=== PATIENT | female | born 1980 | race Hispanic/Latino ===

== ENCOUNTER 2017-07-01 20:08 | Emergency (ER) | payer OTHER ==
[~2017-07-01] VITALS: Ht 157.5 cm; Wt 83.9 kg
[~2017-07-01 20:08] MED LIST: IBUPROFEN600 M1 PO; IBUPROFEN800 M1 PO; TAMIFLU75 M1 PO; ZOFRAN ODT4 M1 SL
--- NOTE | 2017-07-01 20:31 | ED GENERAL ADULT ---
History of Present Illness General Chief Complaint: General Adult Stated Complaint: "ABD PAIN, LOWER BACK PAIN RADIATING TO LEGS" Source: patient Exam Limitations: no limitations Vital Signs & Intake/Output Vital Signs & Intake/Output Vital Signs Date Time Temp Pulse Resp B/P B/P Pulse O2 O2 Flow FiO2 Mean Ox Delivery Rate 07/01 2232 98.0 85 20 114/70 98 Room Air 07/01 2014 98.4 98 18 125/83 98 Room Air ED Intake and Output 07/02 0000 07/01 1200 Intake Total Output Total Balance Patient 185 lb Weight Weight Reported by Patient Measurement Method Allergies Coded Allergies: iodine (Intermediate, HIVES 11/08/16) latex (Mild, RASH 11/08/16) Reconcile Medications Cephalexin (Keflex) 500 MG CAPSULE 1 CAP PO 4 TIMES/DAY INFECTION Ibuprofen 800 MG TABLET 1 TAB PO TID PRN pain [place]-3 Fatty Acids/Fish Oil (Fish Oil 1,000 MG Softgel) (Unknown Strength) CAPSULE (Unknown Dose) PO DAILY SUPPLEMENT (Reported) Sulfamethoxazole/Trimethoprim (Bactrim Ds Tablet) 800 MG-160 MG TABLET 1 TAB PO BID INFECION Triage Note: PT TO ED C/O WORSENING CHRONIC LEFT ABD PAIN SINCE YESTERDAY. DENIES N/V/D. FEELS BLOATED. LAST BM WAS TODAY. C/O PAIN, ITCH AND FREQUENCY WITH URINATION. PMH OF OVARIAN CYSTS. Triage Nurses Notes Reviewed? yes Onset: Gradual Duration: day(s): Timing: recent history Injury Environment: home Severity: mild Modifying Factors: Improves With: rest. Worsens With: movement. : No Patient currently breastfeeds: No HPI: 37 YO WOMAN h/o antiphospholipid antibody syndrome, no history of dvt, presents with left sided abdominal discomfort, increased urination vaginal discharge, "My partner was recently treated for an STI... I think he is fooling around." She notes also a painful lump on inner left thigh, "like an infection I think" She has no fever, chills, nausea, vomiting, diarrhea. Past History Travel History Traveled to [place] past 21 day No Medical History Any Pertinent Medical History? 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 No Review of Systems Review of Systems Constitutional: Reports: no symptoms. EENTM: Reports: no symptoms. Respiratory: Reports: no symptoms. Cardiovascular: Reports: no symptoms. GI: Reports: no symptoms. Genitourinary: Reports: no symptoms. Musculoskeletal: Reports: no symptoms. Skin: Reports: no symptoms. Neurological/Psychological: Reports: no symptoms. Hematologic/Endocrine: Reports: no symptoms. Immunologic/Allergic: Reports: no symptoms. All Other Systems: Reviewed and Negative Physical Exam Physical Exam General Appearance: well developed/nourished Head: atraumatic, normal appearance Eyes: Bilateral: normal appearance. Ears, Nose, Throat: normal pharynx, normal ENT inspection Neck: normal inspection, supple, full range of motion Respiratory: normal breath sounds, chest non-tender, no respiratory distress, quiet respiration, lungs clear Cardiovascular: regular rate/rhythm Gastrointestinal: normal bowel sounds, soft, left sided mild tenderness to palpation. Extremities: normal inspection Neurologic/Psych: no motor/sensory deficits, awake, alert, oriented x 3 Skin: intact, normal color, warm/dry Comments: pelvic exam: no vaginal discharge, no cervical motion or adnexal tenderness. 1cm mildly tender area of cellulitis on left inner thigh, no sign of abscess. no drainage. Core Measures ACS in differential dx? No CVA/TIA Diagnosis: No Sepsis Present: No Sepsis Focused Exam Completed? No Progress Differential Diagnoses I considered the following diagnoses in my evaluation of the patient: kidney stones, sti's, uti vs other. Plan of Care: Orders Procedure Date/time Status TRICHOMONAS 07/01 2048 Complete POTASSIUM HYDROXIDE (TA) 07/01 2048 Complete GENITAL CULTURE 07/01 2048 Active CHLAMYDIA-GC DNA PROBE 07/01 2048 Active LIPASE 07/01 2029 Complete HEPATIC FUNCTION PANEL 07/01 2029 Complete CBC WITHOUT DIFFERENTIAL 07/01 2029 Complete BASIC METABOLIC PANEL 07/01 2029 Complete AMYLASE 07/01 2029 Complete URINE 07/01 2020 Complete URINALYSIS 07/01 2020 Complete Current Medications Sig/Slick Start time Last Medication Dose Stop Time Status Admin Doxycycline Hyclate 100 MG ONCE ONE 07/01 2329 CAN (Vibramycin) 07/01 2331 Laboratory Tests 07/01/172104: Urine Color YEL, Urine Clarity CLEAR, Urine pH 5.5, Ur Specific [place] >= 1.030 , Urine Protein TRACE H, Urine Ketones NEG, Urine Nitrite NEG, Urine Bilirubin NEG, Urine Urobilinogen 0.2, Ur Leukocyte Esterase NEG, Ur Microscopic SEDIMENT EXAMINED, Urine RBC 5-10 H, Ur Epithelial Cells FEW, Urine Bacteria FEW H, Urine Hemoglobin LARGE H, Urine Glucose NEG, Urine Test NEGATIVE 07/01/172044: Anion Gap 12, Estimated GFR > 60, BUN/Creatinine Ratio 16.7, Glucose 178 H, Calcium 8.9, Total Bilirubin 0.6, Direct Bilirubin 0.5 H, AST 15, ALT 24, Alkaline Phosphatase 120, Total Protein 7.7, Albumin 4.1, Amylase 53, Lipase 57, CBC w Diff NO MAN DIFF REQ, RBC 3.85 L, MCV 87.4, MCH 29.5, MCHC 33.8, RDW 14.3 , MPV 6.6 L, Gran % 73.9, Lymphocytes % 19.4 L, Monocytes % 4.7, Eosinophils % 1.7, Basophils % 0.3, Absolute Granulocytes 9.4 H, Absolute Lymphocytes 2.5, Absolute Monocytes 0.6, Absolute Eosinophils 0.2, Absolute Basophils 0 Microbiology 07/01 2214 GENITAL: GC DNA Probe - RECD 07/01 2214 GENITAL: Chlamydia DNA Probe (PETRA) - RECD 07/01 2214 GENITAL: TA Preparation - COMP 07/01 2214 GENITAL: Trichomonas Preparation - COMP 07/01 2214 GENITAL: Genital Culture - RECD Diagnostic Imaging: Viewed by Me: CT Scan. Discussed w/RAD: CT Scan. Radiology Impression: PATIENT: NEREIDA GARDINER PRESENT AGE: 37 PATIENT ACCOUNT NO: [id number] : 80 LOCATION: [facility] ORDERING PHYSICIAN: Jamaal Washington MD SERVICE DATE: 07/01/17 EXAM TYPE: CAT - CT ABD & PELVIS W/O IV CONTRAS EXAMINATION: CT ABDOMEN AND PELVIS WITHOUT CONTRAST CLINICAL INFORMATION: Left-sided pain. Hematuria. COMPARISON: None TECHNIQUE: Multidetector volumetric imaging was performed from the superior aspect of the liver through the pubic symphysis. Sagittal and coronal reformatted images were obtained on the technologist's workstation. DLP: 542.5 mGy-cm FINDINGS: LUNG BASES: The visualized lung bases are unremarkable. LIVER, GALLBLADDER, AND BILIARY TREE: The liver is normal in size, shape, and attenuation. No focal hepatic lesion or biliary ductal dilatation is present. Wire lobe liver measures 19 cm superior inferior. Status post cholecystectomy. PANCREAS: Unremarkable. SPLEEN: Unremarkable. ADRENAL GLANDS: Unremarkable. KIDNEYS AND URETERS: The kidneys are normal in size, shape, and attenuation. No hydronephrosis, hydroureter, or calculi seen. No perinephric stranding. BLADDER: Unremarkable. GASTROINTESTINAL TRACT: There is diverticulosis of left colon sigmoid without diverticulitis. No acute change of the bowel. No bowel obstruction. No bowel wall thickening or edema. The appendix is normal. The small bowel loops are unremarkable. ABDOMINAL WALL: No significant hernia is appreciated. LYMPH NODES: Normal. VASCULAR: Unremarkable. PELVIC VISCERA: Unremarkable. OSSEOUS STRUCTURES: Degenerative spondylosis of the lumbosacral junction with disc height narrowing and facet joint arthrosis. IMPRESSION: No acute abnormality CT of the abdomen and pelvis. Normal kidneys, ureter and bladder. DICTATED BY: Tony Pierre MD DATE/TIME DICTATED:07/01/172250 BROOMMAKER:VALERIO DATE/TIME TRANSCRIBED:07/01/172250 CONFIDENTIAL, DO NOT COPY WITHOUT APPROPRIATE AUTHORIZATION. <Electronically signed in Other Vendor System> SIGNED BY: Tony iPerre MD 07/01/17 0881 Initial ED EKG: none Departure Departure Disposition: HOME OR SELF CARE Condition: Stable Clinical Impression Primary Impression: Abdominal pain Secondary Impressions: Furunculosis Referrals: Brenana GIRALDO,Jim Melara (PCP/Family) Departure Forms: Customer Survey General Discharge Information Prescriptions: Current Visit Scripts Sulfamethoxazole/Trimethoprim (Bactrim Ds Tablet) 1 TAB PO BID #14 TAB Cephalexin (Keflex) 1 CAP PO 4 TIMES/DAY #28 CAP Ibuprofen 1 TAB PO TID PRN pain #30 TAB Comments 07/01/17, 23:20... benign exam, benign labs/ct scan... gave abx for the small furuncle on left inner thigh... pelvic cultures sent... close follow up advised. Critical Care Note Critical Care Note Critical Care Time: non-applicable
[2017-07-01] MEDS ORDERED: FISH OIL 1,0001 EAC4 PO (20:41)
[2017-07-01 20:51] LABS: ABSOLUTE BASOPHIL COUNT 0 /CUMM (0.0-0.2); ABSOLUTE EOSINOPHIL COUNT 0.2 /CUMM (0.0-0.7); ABSOLUTE GRANULOCYTE CT 9.4 /CUMM (1.4-6.5); ABSOLUTE LYMPH COUNT 2.5 /CUMM (1.2-3.4); ABSOLUTE MONOCYTE COUNT 0.6 /CUMM (0.10-0.60); BASOPHIL % 0.3 % (0.0-2.0); EOSINOPHIL % 1.7 % (0-5); GRANULOCYTE % 73.9 % (42.2-75.2); HEMATOCRIT 33.6 % (37-47); MEAN CORPUSCULAR HGB 29.5 PG (27.0-31.0); MEAN CORPUSCULAR HGB CONC 33.8 G/DL (33.0-37.0); MEAN CORPUSCULAR VOLUME 87.4 FL (81.0-99.0); MEAN PLATELET VOLUME 6.6 FL (7.4-10.4); PLATELET COUNT 267 /CUMM (130-400); RBC DISTRIBUTION WIDTH 14.3 % (11.5-14.5); RED BLOOD CELL CT 3.85 /CUMM (4.20-5.40); WHITE BLOOD CELL COUNT 12.7 /CUMM (4.8-10.8)
[2017-07-01 22:33] VITALS: BP 114/70
[2017-07-01] MEDS ORDERED: BACTRIM DS TAB1 EACH PO (22:38)
[2017-07-01] MEDS ORDERED: KEFLEX500 M1 PO (22:38)
--- NOTE | 2017-07-01 23:09 | CT SCAN REPORT ---
EXAMINATION: CT ABDOMEN AND PELVIS WITHOUT CONTRAST CLINICAL INFORMATION: Left-sided pain. Hematuria. COMPARISON: None TECHNIQUE: Multidetector volumetric imaging was performed from the superior aspect of the liver through the pubic symphysis. Sagittal and coronal reformatted images were obtained on the technologist's workstation. DLP: 542.5 mGy-cm FINDINGS: LUNG BASES: The visualized lung bases are unremarkable. LIVER, GALLBLADDER, AND BILIARY TREE: The liver is normal in size, shape, and attenuation. No focal hepatic lesion or biliary ductal dilatation is present. Wire lobe liver measures 19 cm superior inferior. Status post cholecystectomy. PANCREAS: Unremarkable. SPLEEN: Unremarkable. ADRENAL GLANDS: Unremarkable. KIDNEYS AND URETERS: The kidneys are normal in size, shape, and attenuation. No hydronephrosis, hydroureter, or calculi seen. No perinephric stranding. BLADDER: Unremarkable. GASTROINTESTINAL TRACT: There is diverticulosis of left colon sigmoid without diverticulitis. No acute change of the bowel. No bowel obstruction. No bowel wall thickening or edema. The appendix is normal. The small bowel loops are unremarkable. ABDOMINAL WALL: No significant hernia is appreciated. LYMPH NODES: Normal. VASCULAR: Unremarkable. PELVIC VISCERA: Unremarkable. OSSEOUS STRUCTURES: Degenerative spondylosis of the lumbosacral junction with disc height narrowing and facet joint arthrosis. IMPRESSION: No acute abnormality CT of the abdomen and pelvis. Normal kidneys, ureter and bladder.
[2017-07-01] MEDS ORDERED: IBUPROFEN800 M1 PO (23:20)
== END 2017-07-01 23:22 ==
LOC: ERH 20:08
PROVIDERS: Pediatrics
DX: L02.426 Furuncle of left lower limb (principal); R10.9 Unspecified abdominal pain
CPT/HCPCS: 87070; 74176; 81001; 81025; 87491; 87591; 96372; J1885

== ENCOUNTER 2017-10-01 00:10 | Emergency (ER) | payer OTHER ==
[~2017-10-01] VITALS: Ht 152.4 cm; Wt 83.9 kg
[~2017-10-01 00:10] MED LIST changes: +BACTRIM DS TAB1 EACH PO; +FISH OIL 1,0001 EAC4 PO; +KEFLEX500 M1 PO
[2017-10-01 00:23] VITALS: BP 119/76
--- NOTE | 2017-10-01 00:28 | ED GI/GU/ABDOMINAL COMPLAINT ---
History of Present Illness General Chief Complaint: Female Urogenital Problems Stated Complaint: " UM IM HAVING VAGINAL SYMPTOMS ? UTI" Source: patient Exam Limitations: no limitations Vital Signs & Intake/Output Vital Signs & Intake/Output Vital Signs Date Time Temp Pulse Resp B/P B/P Pulse O2 O2 Flow FiO2 Mean Ox Delivery Rate 10/01 0113 Room Air 10/01 0023 98.0 98 16 119/76 98 Room Air Allergies Coded Allergies: iodine (Intermediate, HIVES 11/08/16) latex (Mild, RASH 11/08/16) Reconcile Medications Cephalexin (Keflex) 500 MG CAPSULE 1 CAP PO 4 TIMES/DAY INFECTION Doxycycline Hyclate 100 MG TABLET 1 TAB PO BID INFECTION Ibuprofen 800 MG TABLET 1 TAB PO TID PRN pain [place]-3 Fatty Acids/Fish Oil (Fish Oil 1,000 MG Softgel) (Unknown Strength) CAPSULE (Unknown Dose) PO DAILY SUPPLEMENT (Reported) Sulfamethoxazole/Trimethoprim (Bactrim Ds Tablet) 800 MG-160 MG TABLET 1 TAB PO BID INFECION Triage Note: 37YO TO TRIAGE W/CO URINARY FREQUENCY X 2 D DENIES ANY VAG BLEEDING. URINE SPEC OBTAINED--3 TUBES TO LAB Triage Nurses Notes Reviewed? yes ? n Is pt currently ? No HPI: 37 yo woman presents with a concern for a sexually transmitted infection. She notes, "My boyfriend told me that he was recently diagnosed with chlamydia. " She notes mild, scant discharge, no nausea, vomiting, diarrhea, abdominal pain, fever, dysuria. She is otherwise well. Past History Travel History Traveled to [place] past 21 day No Medical History Any Pertinent Medical History? 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 No Review of Systems Review of Systems Constitutional: Reports: no symptoms. EENTM: Reports: no symptoms. Respiratory: Reports: no symptoms. Cardiovascular: Reports: no symptoms. GI: Reports: no symptoms. Genitourinary: Reports: no symptoms. Musculoskeletal: Reports: no symptoms. Skin: Reports: no symptoms. Neurological/Psychological: Reports: no symptoms. Hematologic/Endocrine: Reports: no symptoms. Immunologic/Allergic: Reports: no symptoms. All Other Systems: Reviewed and Negative Physical Exam Physical Exam General Appearance: well developed/nourished, no apparent distress Gastrointestinal: normal bowel sounds, soft, non-tender Comments: Physical Exam Physical Exam General Appearance: well developed/nourished, no apparent distress Head: atraumatic, normal appearance Eyes: Bilateral: normal appearance. Ears, Nose, Throat: normal pharynx, normal ENT inspection Neck: normal inspection, supple, full range of motion Respiratory: normal breath sounds, chest non-tender, no respiratory distress, quiet respiration, lungs clear Cardiovascular: regular rate/rhythm Gastrointestinal: normal bowel sounds, soft, non-tender, no organomegaly Back: normal inspection, normal range of motion Extremities: normal inspection, normal capillary refill, normal range of motion, no edema Neurologic/Psych: no motor/sensory deficits, awake, alert, oriented x 3 Skin: intact, normal color, warm/dry Pelvic: pt wishes to defer. Core Measures ACS in differential dx? No Sepsis Present: No Sepsis Focused Exam Completed? No Progress Differential Diagnosis: sti vs uti vs other. Plan of Care: Orders Procedure Date/time Status Add-on Test (ER Only) 10/01 005 Active CHLAMYDIA-GC DNA PROBE 10/02 19 Active URINE 10/01 0016 Complete URINALYSIS 10/02 15 Complete Laboratory Tests 10/01/17 0020: Urine Color YEL, Urine Clarity CLEAR, Urine pH 6.0, Ur Specific [place] 1.010, Urine Protein NEG, Urine Ketones NEG, Urine Nitrite NEG, Urine Bilirubin NEG, Urine Urobilinogen 0.2, Ur Leukocyte Esterase NEG, Ur Microscopic SEDIMENT EXAMINED, Urine RBC 1-3, Ur Epithelial Cells RARE, Urine Hemoglobin MOD H, Urine Glucose >=1000 H, Urine Test NEGATIVE Microbiology 10/02 19 URINE ROUT: GC DNA Probe - RECD 10/02 19 URINE ROUT: Chlamydia DNA Probe (PETRA) - RECD Initial ED EKG: none Departure Departure Disposition: HOME OR SELF CARE Condition: Stable Clinical Impression Primary Impression: Contact with and (suspected) exposure to infections with a predominantly sexual mode of transmission Referrals: Breanna GIRALDO,Jim Melara (PCP/Family) Departure Forms: Customer Survey General Discharge Information Prescriptions: Current Visit Scripts Doxycycline Hyclate 1 TAB PO BID #20 TAB Comments discussed at length... given the potential exposure, will opt to treat... I added on gc/chlamydia probe to U/A since pt declines pelvic... pt will follow up with her fisher on tuesday.
[2017-10-01] MEDS ORDERED: DOXYCYCLINE HY100 M4 PO (00:57)
== END 2017-10-01 01:15 ==
LOC: ERH 00:10
DX: Z20.2 Contact with and (suspected) exposure to infections with a predominantly sexual mode of transmission (principal)
CPT/HCPCS: 81001; 81025; 87491; 87591; 96372; J0456; J0696